=== PATIENT | male | born 1995 ===

== ENCOUNTER 2018-01-09 01:35 | Observation (INO) | payer OTHER ==
[2018-01-09] MEDS ORDERED: Morphine VIAL* 10 MG/ML 1 ML VIAL IV ONE (02:23)
[2018-01-09] MEDS ORDERED: Ondansetron INJ* 2 MG/ML VIAL IV ONE (02:23)
[2018-01-09] MEDS ORDERED: NS 0.9% 1000 ML* 1,000 ML IV ONE ×3 (02:23→08:39)
--- NOTE | 2018-01-09 02:27 | ED ---
Abdominal Pain/Male - HPI Summary HPI Summary: Please of sudden onset epigastric pain with multiple episodes of N/V starting at 10 PM last night. Patient states he had pizza for dinner. Patient has tried Tums but has vomited up. Active vomiting here in ED. Abdominal pain described as constant with spikes, improved after vomiting. Denies fever, cough , sore throat, CP, SOB, diarrhea, change in urine or BM. Medical history is none. Abdominal/pelvic surgical history is none. - History of Current Complaint Hx Obtained From: Patient Onset/Duration: Sudden Onset Timing: Constant Severity Initially: Moderate Severity Currently: Moderate Pain Intensity: 8 Pain Scale Used: 0-10 Numeric Location: Epigastric Radiates: No Character: Sharp Alleviating Factor(s): Vomiting Associated Signs And Symptoms: Positive: Nausea, Vomiting - Risk Factors Testicular Torsion: Negative Cardiac Risk Factors: Negative <Bradley Paul - Last Filed: 01/09/18 03:36> <Tee Jean-Baptiste - Last Filed: 01/09/18 07:00> - History of Current Complaint Chief Complaint: EDNauseaVomitDiarrh Stated Complaint: ABD PAIN Time Seen by Provider: 01/09/18 01:56 - Allergies/Home Medications Allergies/Adverse Reactions: Allergies Allergy/AdvReac Type Severity Reaction Status Date / Time No Known Allergies Allergy Verified 01/09/18 01:42 Home Medications: Home Medications NK [No Home Medications Reported] 01/09/18 [History Confirmed 01/09/18] PMH/Surg Hx/FS Hx/Imm Hx Infectious Disease History: No Infectious Disease History: Denies: Traveled Outside the [place] in Last 30 Days - Social History Alcohol Use: Weekly Substance Use Type: Reports: None Smoking Status (MU): Never Smoked Tobacco <Bradley Paul - Last Filed: 01/09/18 03:36> Review of Systems Constitutional: Negative Eyes: Negative ENT: Negative Cardiovascular: Negative Respiratory: Negative Positive: Abdominal Pain, Vomiting, Nausea Genitourinary: Negative Musculoskeletal: Negative Skin: Negative Neurological: Negative Psychological: Normal All Other Systems Reviewed And Are Negative: Yes <Bradley Paul - Last Filed: 01/09/18 03:36> Physical Exam Triage Information Reviewed: Yes Vital Signs On Initial Exam: Initial Vitals Temp Pulse Resp BP Pulse Ox 98.1 F 81 20 124/78 100 01/09/18 01:40 01/09/18 01:40 01/09/18 01:40 01/09/18 01:40 01/09/18 01:40 Vital Signs Reviewed: Yes Appearance: Positive: Well-Appearing Skin: Positive: Warm Head/Face: Positive: Normal Head/Face Inspection Eyes: Positive: Normal Neck: Positive: Supple Respiratory/Lung Sounds: Positive: Clear to Auscultation Cardiovascular: Positive: Normal Abdomen Description: Positive: Other: - Epigastric and left upper quadrant tenderness Musculoskeletal: Positive: Normal Neurological: Positive: Normal Psychiatric: Positive: Normal AVPU Assessment: Alert - Sourav Coma Scale Best Eye Response: 4 - Spontaneous Best Motor Response: 6 - Obeys Commands Best Verbal Response: 5 - Oriented Coma Scale Total: 15 <Bradley Paul - Last Filed: 01/09/18 03:36> Vital Signs On Initial Exam: Initial Vitals Temp Pulse Resp BP Pulse Ox 98.1 F 81 20 124/78 100 01/09/18 01:40 01/09/18 01:40 01/09/18 01:40 01/09/18 01:40 01/09/18 01:40 <Tee Jean-Baptiste - Last Filed: 01/09/18 07:00> Diagnostics - Vital Signs Vital Signs Temp Pulse Resp BP Pulse Ox 01/09/18 01:40 98.1 F 81 20 124/78 100 - Laboratory Result Diagrams: 01/09/18 02:25 01/09/18 02:25 Lab Statement: Any lab studies that have been ordered have been reviewed, and results considered in the medical decision making process. <Bradley Paul - Last Filed: 01/09/18 03:36> - Vital Signs Vital Signs Temp Pulse Resp BP Pulse Ox 01/09/18 06:43 74 143/80 96 01/09/18 06:01 107 98 01/09/18 05:59 70 136/73 98 01/09/18 05:29 69 134/76 97 01/09/18 05:01 77 97 01/09/18 04:59 71 135/73 97 01/09/18 04:29 79 133/78 98 01/09/18 04:01 75 99 01/09/18 03:59 73 126/83 99 01/09/18 03:29 82 135/79 97 01/09/18 03:01 74 95 01/09/18 02:59 78 137/78 93 01/09/18 02:58 74 97 01/09/18 02:49 18 01/09/18 01:40 98.1 F 81 20 124/78 100 - Laboratory Lab Results: Lab Results 01/09/18 01/09/18 01/09/18 Range/Units 02:25 02:25 02:25 WBC 10.9 H (3.5-10.8) 10^3/ul RBC 5.50 H (4.0-5.4) 10^6/ul Hgb 15.2 (14.0-18.0) g/dl Hct 46 (42-52) % MCV 83 (80-94) fL MCH 28 (27-31) pg MCHC 33 (31-36) g/dl RDW 14 (10.5-15) % Plt Count 222 (150-450) 10^3/ul MPV 8.1 (7.4-10.4) um3 Neut % (Auto) 82.2 (38-83) % Lymph % (Auto) 10.9 L (25-47) % [place] % (Auto) 6.1 (0-7) % Eos % (Auto) 0.4 (0-6) % Baso % (Auto) 0.4 (0-2) % Absolute Neuts (auto) 9.0 H (1.5-7.7) 10^3/ul Absolute Lymphs (auto) 1.2 (1.0-4.8) 10^3/ul Absolute Monos (auto) 0.7 (0-0.8) 10^3/ul Absolute Eos (auto) 0 (0-0.6) 10^3/ul Absolute Basos (auto) 0 (0-0.2) 10^3/ul Absolute Nucleated RBC 0 10^3/ul Nucleated RBC % 0.1 Sodium 141 (139-145) mmol/L Potassium 4.2 (3.5-5.0) mmol/L Chloride 108 (101-111) mmol/L Carbon Dioxide 25 (22-32) mmol/L Anion Gap 8 (2-11) mmol/L BUN 18 (6-24) mg/dL Creatinine 1.16 (0.67-1.17) mg/dL Est GFR ( Amer) 101.3 (>60) Est GFR (Non-Af Amer) 78.7 (>60) BUN/Creatinine Ratio 15.5 (8-20) Glucose 116 H (70-100) mg/dL Lactic Acid 0.9 (0.5-2.0) mmol/L Calcium 9.8 (8.6-10.3) mg/dL Total Bilirubin 1.20 H (0.2-1.0) mg/dL AST 17 (13-39) U/L ALT 17 (7-52) U/L Alkaline Phosphatase 75 (34-104) U/L Total Protein 7.3 (6.4-8.9) g/dL Albumin 4.5 (3.2-5.2) g/dL Globulin 2.8 (2-4) g/dL Albumin/Globulin Ratio 1.6 (1-3) Lipase 10 L (11.0-82.0) U/L Urine Color Urine Appearance Urine pH (5-9) Ur Specific [place] (1.010-1.030) Urine Protein (Negative) Urine Ketones (Negative) Urine Blood (Negative) Urine Nitrate (Negative) Urine Bilirubin (Negative) Urine Urobilinogen (Negative) Ur Leukocyte Esterase (Negative) Urine Glucose (Negative) 01/09/18 Range/Units 03:50 WBC (3.5-10.8) 10^3/ul RBC (4.0-5.4) 10^6/ul Hgb (14.0-18.0) g/dl Hct (42-52) % MCV (80-94) fL MCH (27-31) pg MCHC (31-36) g/dl RDW (10.5-15) % Plt Count (150-450) 10^3/ul MPV (7.4-10.4) um3 Neut % (Auto) (38-83) % Lymph % (Auto) (25-47) % [place] % (Auto) (0-7) % Eos % (Auto) (0-6) % Baso % (Auto) (0-2) % Absolute Neuts (auto) (1.5-7.7) 10^3/ul Absolute Lymphs (auto) (1.0-4.8) 10^3/ul Absolute Monos (auto) (0-0.8) 10^3/ul Absolute Eos (auto) (0-0.6) 10^3/ul Absolute Basos (auto) (0-0.2) 10^3/ul Absolute Nucleated RBC 10^3/ul Nucleated RBC % Sodium (139-145) mmol/L Potassium (3.5-5.0) mmol/L Chloride (101-111) mmol/L Carbon Dioxide (22-32) mmol/L Anion Gap (2-11) mmol/L BUN (6-24) mg/dL Creatinine (0.67-1.17) mg/dL Est GFR ( Amer) (>60) Est GFR (Non-Af Amer) (>60) BUN/Creatinine Ratio (8-20) Glucose (70-100) mg/dL Lactic Acid (0.5-2.0) mmol/L Calcium (8.6-10.3) mg/dL Total Bilirubin (0.2-1.0) mg/dL AST (13-39) U/L ALT (7-52) U/L Alkaline Phosphatase (34-104) U/L Total Protein (6.4-8.9) g/dL Albumin (3.2-5.2) g/dL Globulin (2-4) g/dL Albumin/Globulin Ratio (1-3) Lipase (11.0-82.0) U/L Urine Color Yellow Urine Appearance Clear Urine pH 5.0 (5-9) Ur Specific [place] 1.023 (1.010-1.030) Urine Protein Negative (Negative) Urine Ketones 1+ A (Negative) Urine Blood Negative (Negative) Urine Nitrate Negative (Negative) Urine Bilirubin Negative (Negative) Urine Urobilinogen Negative (Negative) Ur Leukocyte Esterase Negative (Negative) Urine Glucose Negative (Negative) Result Diagrams: 01/09/18 02:25 01/09/18 02:25 Lab Statement: Any lab studies that have been ordered have been reviewed, and results considered in the medical decision making process. <Tee Jean-Baptiste - Last Filed: 01/09/18 07:00> Re-Evaluation - Re-Evaluation 1 Re-Evaluation Time: 03:28 Change: Improved Comment: Patient pain and nausea control. Initial abdominal exam was inconclusive, as patient was reactive to pressure in any quadrant. After pain control patient most tender in right lower quadrant 2 Re-Evaluation Time: 03:36 Comment: Patient care endorsed to Dr. Jean-Baptiste at this time. <Bradley Paul - Last Filed: 01/09/18 03:36> Abdominal Pain Fem Course/Dx <Bradley Paul - Last Filed: 01/09/18 03:36> - Course Course Of Treatment: Pt pending CT -- I, Dr Jean-Baptiste assumed care. See my separate note. I performed a hx/PE on this patient. - Diagnoses Differential Diagnosis/HQI/PQRI: Appendicitis, Bowel Obstruction, Constipation, Diverticulitis, Pancreatitis, Peptic Ulcer Disease, Urinary Tract Infection <Tee Jean-Baptiste - Last Filed: 01/09/18 07:00> - Diagnoses Provider Diagnoses: Right lower quadrant abdominal pain Discharge <Bradley Paul - Last Filed: 01/09/18 03:36> - Sign-Out/Discharge Documenting (check all that apply): Sign-Out Patient Signing out patient TO: Steven Frias - signed out by Dr Jean-Baptiste at 7am - Discharge Plan Discharge Disposition Comment: Dr Frias - Billing Disposition and Condition Condition: STABLE <Tee Jean-Baptiste - Last Filed: 01/09/18 07:00> - Discharge Plan Condition: Stable Referrals: [facility] - Markell MCKINNON [Primary Care Provider] -
[2018-01-09] MEDS ORDERED: Morphine VIAL* 4 MG/ML VIAL (1 ml vial) IV ONE ×2 (02:43→02:49)
[2018-01-09 02:53] LABS: ABS Basophils 0 10^3/ul (0-0.2); ABS Eosinophils 0 10^3/ul (0-0.6); ABS Lymphocytes 1.2 10^3/ul (1.0-4.8); ABS Monocytes 0.7 10^3/ul (0-0.8); ABS Nucleated RBC 0 10^3/ul; Eosinophil % 0.4 % (0-6); Hematocrit 46 % (42-52); Hemoglobin 15.2 g/dl (14.0-18.0); Lymphocyte % 10.9 % (25-47); Mean Corpuscular HGB Conc 33 g/dl (31-36); Mean Corpuscular Hemoglobin 28 pg (27-31); Mean Corpuscular Volume 83 fL (80-94); Mean Platelet Volume 8.1 um3 (7.4-10.4); Nucleated Red Blood Cells % 0.1; Platelet Count 222 10^3/ul (150-450); Red Cell Distribution Width 14 % (10.5-15); White Blood Count 10.9 10^3/ul (3.5-10.8)
[2018-01-09 03:09] LABS: EGFR Non-African American 78.7 (>60)
[2018-01-09 04:04] LABS: Urine Appearance Clear; Urine Blood Negative (Negative); Urine Color Yellow; Urine Ketones 1+ (Negative); Urine Protein Negative (Negative); Urine Specific Gravity 1.023 (1.010-1.030); Urine Urobilinogen Negative (Negative)
[2018-01-09] MEDS ORDERED: Iohexol 300* (CONTRAST) 10 ML SDV IV ONE (06:21)
--- NOTE | 2018-01-09 07:47 | RAD ---
INDICATION: Right lower quadrant pain, nausea and vomiting. COMPARISON: There are no prior studies available for comparison. TECHNIQUE: A CT scan of the abdomen and pelvis was performed with intravenous and oral contrast following intravenous injection of 100 ml of Omnipaque 300 nonionic contrast. Contiguous axial sections were obtained from the lung bases through the symphysis pubis. Images were reconstructed in the coronal and sagittal planes. FINDINGS: The lung bases are clear. No pleural effusion is present. The liver and spleen are within normal limits in size without significant focal abnormality. No calcified gallstones are seen. The pancreas appears to be within normal limits in size. The kidneys and adrenal glands are normal in size. No hydronephrosis is seen. No significant focal renal abnormality is seen. The aorta is normal in caliber and demonstrates homogeneous contrast opacification. There is a retroaortic left renal vein present. No significant enlarged retroperitoneal lymph nodes are seen. The stomach, small and large bowel appear nondistended. The appendix is borderline enlarged measuring 7 mm in diameter. There is some fluid within the appendix. There is no contrast extension into the appendix. There is no surrounding interstitial inflammatory changes. No abscess is present. No free intraperitoneal air is seen. There is a small amount of free intraperitoneal fluid in the posterior pelvis which is abnormal. No significant focal osseous abnormality is seen. IMPRESSION: 1. BORDERLINE ENLARGED APPENDIX WITHOUT SURROUNDING INFLAMMATORY CHANGE ALTHOUGH MAY REPRESENT EARLY APPENDICITIS. RECOMMEND CLINICAL CORRELATION AND FOLLOW-UP. 2. SMALL AMOUNT OF FREE INTRAPERITONEAL FLUID.
[2018-01-09 08:59] LABS: ABS Basophils 0 10^3/ul (0-0.2); ABS Eosinophils 0 10^3/ul (0-0.6); ABS Lymphocytes 1.4 10^3/ul (1.0-4.8); ABS Monocytes 0.7 10^3/ul (0-0.8); ABS Neutrophils 7.9 10^3/ul (1.5-7.7); ABS Nucleated RBC 0 10^3/ul; Eosinophil % 0.1 % (0-6); Hematocrit 42 % (42-52); Hemoglobin 13.9 g/dl (14.0-18.0); Lymphocyte % 13.9 % (25-47); Mean Corpuscular HGB Conc 33 g/dl (31-36); Mean Corpuscular Hemoglobin 27 pg (27-31); Mean Corpuscular Volume 83 fL (80-94); Mean Platelet Volume 7.9 um3 (7.4-10.4); Nucleated Red Blood Cells % 0; Platelet Count 218 10^3/ul (150-450); Red Blood Count 5.06 10^6/ul (4.0-5.4); Red Cell Distribution Width 14 % (10.5-15)
[2018-01-09 09:18] LABS: EGFR Non-African American 85.5 (>60)
--- NOTE | 2018-01-09 10:33 | HP ---
CC: [facility]; [facility]* HISTORY AND PHYSICAL: DATE OF ADMISSION: 01/09/18 REFERRING PROVIDER: Dr. Steven Frias, emergency room. CHIEF COMPLAINT: Right lower quadrant abdominal pain with nausea and vomiting. HISTORY OF PRESENT ILLNESS: Mr. 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 He was anorexic and he had no diarrhea or urinary complaints. Subsequent to this over the next 6 to 8 hours, he developed some right lower quadrant abdominal pain and he presented to the emergency room early this morning. He was noted to be afebrile and noted to have tenderness in the right lower quadrant on physical examination. He had mild elevation of his white blood cell count to 11,000. He underwent a CAT scan of the abdomen and pelvis. I did review these images. This shows a distended, mildly thick walled appendix and periappendiceal inflammation with no evidence of extraluminal air, fluid or abscess to suggest perforation. The study was otherwise unremarkable. Surgical consultation has been obtained. PAST MEDICAL HISTORY: Unremarkable. 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 MEDICATIONS: None. ALLERGIES: He has no known drug allergies. SOCIAL HISTORY: He does not smoke. He drinks alcohol on a rare social basis. He is a [employer] senior, he will be graduating and will pursue a PhD degree starting next year. REVIEW OF SYSTEMS: Cerebrovascular: No dizziness or visual disturbances. Cardiovascular: No chest pain, shortness of breath. Pulmonary: No wheezing or hemoptysis. GI: As per above. He has no chronic abdominal discomfort. He has had no weight loss. He has never had pain like this before. : No urgency or hematuria. PHYSICAL EXAMINATION GENERAL: A well-developed, well-nourished male who appears to be in no apparent distress. He is quite alert and conversive. VITAL SIGNS: He is afebrile. Heart rates in the 70s. LUNGS: Clear to auscultation with normal respiratory effort. HEART: Regular rate and rhythm without murmurs, rubs or gallops. ABDOMEN: Soft, nondistended. He had diminished bowel sounds throughout. There are no prior surgical incisions. There is no hernia. He has tenderness with some voluntary guarding in the right lower quadrant with some rigidity. There is no tenderness in the suprapubic area or left lower quadrant. PSYCHIATRIC: He is awake, alert and oriented x3. He has normal judgment and insight. IMPRESSION: Acute appendicitis. PLAN/RECOMMENDATIONS: I discussed the findings of the history and physical exam and the CT scan, discussed the pathophysiology of acute appendicitis and treatment here in the [place], and I recommend that he proceed with a laparoscopic appendectomy today when the operating room schedule permits. His mother is an anesthesiologist in [place] and I did talk with her as well on the telephone. We discussed nonoperative management of acute appendicitis including IV antibiotic treatment and I do not recommend this course and she also agrees that we should proceed with surgery, especially considering the fact that he most likely will be able to go home later today or early tomorrow morning with minimal risk from surgery for such an early presentation of acute appendicitis without apparent complication. I discussed the procedure with them in detail, and the risks of, but not limited to bleeding, infection, intraabdominal abscess formation, injury to peritoneal and retroperitoneal structures, abscess formation, possibility of an open procedure, postoperative deep vein thrombosis, the risk of general anesthesia and recovery time were also discussed. Plan: The patient will be kept n.p.o. and continued IV fluids. He will receive a dose of antibiotics preoperatively and we will proceed later today as the operating room schedule permits. [id number]/[facility] #: [id number] [place]
[2018-01-09] MEDS ORDERED: NS 0.9% 100 ML* 100 ML with ceFOXitin(*) 2 GM IVPB ONE ×2 (13:00)
[2018-01-09] MEDS ORDERED: Bupivacaine 0.25% SDV* 30 ML ONE (14:13)
[2018-01-09] MEDS ORDERED: Naloxone* 0.4 MG/ML 1 ML VIAL IV PRN (14:33)
[2018-01-09] MEDS ORDERED: Ondansetron INJ* 2 MG/ML VIAL IV PRN ×2 (14:33→18:47)
[2018-01-09] MEDS ORDERED: fentaNYL* 50 MCG/ML 2 ML VIAL (100 MCG VIAL) IV PRN (14:33)
[2018-01-09] MEDS ORDERED: fentaNYL* 50 MCG/ML 2 ML VIAL (100 MCG VIAL) ONE (14:42)
[2018-01-09] MEDS ORDERED: Propofol* 10 MG/ML 20 ML BTL IV PUSH ONE ×2 (14:46→15:45)
[2018-01-09] MEDS ORDERED: Rocuronium* 10 MG/ML VIAL ONE (14:46)
[2018-01-09] MEDS ORDERED: Lidocaine 2% PF * 5 ML VIAL ONE (14:46)
--- NOTE | 2018-01-09 15:39 | ED ---
I, Sheldon Ruiz, scribed for Steven Frias MD on 01/09/18 at 0730 . Progress - Progress Note Progress Note: The patient is a sign out from Dr. Jean-Baptiste to Dr. Frias at shift change, awaiting further workup and disposition. The CT scan was inconclusive with regards to appendicitis, so I asked Dr. Livingston, surgery, to come to assess the patient. He came to the ED at 09:20. He has a high suspicion for appendicitis, so he will admit the patient for surgery. Course/Dx - Diagnoses Provider Diagnoses: Acute appendicitis Discharge - Sign-Out/Discharge Documenting (check all that apply): Discharge/Admit/Transfer - Patient is admitted by Dr. Livingston, Receiving Sign-Out Receiving patient FROM: Tee Jean-Baptiste - Discharge Plan Condition: Stable Disposition: ADMITTED TO [facility] - Billing Disposition and Condition Condition: STABLE Disposition: [facility] [place] The documentation as recorded by the scribeJoseph Thomas accurately reflects the service I personally performed and the decisions made by me, Steven Frias MD.
[2018-01-09] MEDS ORDERED: Glycopyrrolate IV* 0.2 MG/ML 1 ML VIAL ONE (15:45)
[2018-01-09] MEDS ORDERED: Ketorolac INJ* 30 MG/ML 1 ML VIAL ONE (15:45)
[2018-01-09] MEDS ORDERED: Neostigmine Methylsulfate* 1 MG/ML 10 ML VIAL (1 mg/ml) ONE (15:45)
--- NOTE | 2018-01-09 16:08 | BRIEFOPN ---
Brief Operative Note - Surgery Procedures: OPERATIVE REPORT PRE-OP: Acute appendicitis POST-OP: Acute suppurative appendicitis PROCEDURE: Laparoscopic appendectomy SURGEON: MD Miki ANESTHESIA: General with Dr. Juarez ASST: MELISSA Olivo IVF: 1 liter of crystalloid EBL: min SPECIMEN:appendix DRAIN: none WOUND CLASS: clean contaminated COMPLICATIONS: none TO PACU
[2018-01-09] MEDS ORDERED: Ketorolac INJ* 30 MG/ML 1 ML VIAL IV PUSH PRN (18:47)
[2018-01-09] MEDS ORDERED: Acetaminophen TAB* 325 MG PO PRN (18:47)
[2018-01-09] MEDS ORDERED: Morphine VIAL* 4 MG/ML VIAL (1 ml vial) IV PRN (18:49)
[2018-01-09] MEDS ORDERED: oxyCODONE/Acetamin 5/325 MG* TAB ONE (19:36)
[2018-01-09] MEDS: oxyCODONE/Acetamin 5/325 MG* TAB PO PRN (19:39)
[2018-01-09] MEDS: Heparin VIAL(*) 5000 UNITS/ML VIAL (FIVE THOUSAND) SUBCUT SCH (21:26)
--- NOTE | 2018-01-09 23:55 | OP ---
CC: [facility]; [facility]* OPERATIVE REPORT: DATE OF OPERATION: 01/09/18 - Inpatient, room SSU 343-02 DATE OF : 89 SURGEON: Kunal Livingston MD TOOL PUSHER: SELENA Piña Student ANESTHESIOLOGIST: Dr. Chong. ANESTHESIA: General with local. PRE-OP DIAGNOSIS: Acute appendicitis. POST-OP DIAGNOSIS: Acute suppurative appendicitis. OPERATIVE PROCEDURE: Laparoscopic appendectomy. ESTIMATED BLOOD LOSS: Minimal. WOUND CLASSIFICATION: Clean contaminated. DRAINS: None. SPECIMENS: Appendix. COMPLICATIONS: None. FINDINGS: Acute suppurative appendicitis without evidence of perforation, gangrene or abscess formation. BRIEF HISTORY: Mr. Naga Pierce is a 22-year-old [employer] senior, who presented to the emergency room with 16 hours of abdominal pain, nausea, and vomiting, and subsequent development of right lower quadrant abdominal pain. A CT scan showed acute appendicitis. He is now to be taken to the operating room for an appendectomy. The procedure including the risks, benefits, and alternatives were discussed with the patient and he gives us consent to proceed. DESCRIPTION OF PROCEDURE: Written informed consent was obtained, the abdomen was marked with indelible ink and preoperative antibiotics were administered. The patient was taken to the operating room and placed in the supine position. Sequential compression devices and a warming blanket were applied. General anesthesia was administered. The abdomen was prepped and draped in the usual sterile fashion. Time-out verification was completed. A 0.25% Marcaine mixed with 1% lidocaine was infiltrated around the periumbilical area and a vertical incision was made at the lower portion of the umbilicus, and the peritoneal cavity was entered under direct vision. A 12-mm blunt port was inserted. The abdomen was insufflated to 15 mmHg. Under direct vision, a 5-mm port was placed in the left lower abdominal wall and I placed a second 5-mm port in the right upper abdominal wall due to the fact that the bladder was quite distended and I did not feel that I would be able to place a suprapubic port low enough for adequate visualization and dissection. The appendix was identified. The distal half was suppuratively inflamed and edematous without evidence of perforation. The proximal appendix, cecum and terminal ileum were all normal. There was some turbid yellow fluid in the right lower quadrant as well as the pelvis, but no pus, abscess or evidence of perforation. The appendix was then grasped and elevated. The mesoappendix was taken sequentially with a LigaSure device from distal to proximal. The base of the appendix was normal as was the cecum and an EndoGIA luciano load of a 45-mm stapler was used to divide the appendix at its base and this was placed in an EndoCatch bag and brought out through the umbilical incision. The staple line was intact without evidence of bleeding. I irrigated the right lower lower quadrant and pelvis to the point that it was clear. All ports removed under direct vision of the camera and there was no abdominal wall bleeding. The umbilical fascia was closed with interrupted 0 Polysorb suture. The skin was approximated with subcuticular 4-0 Polysorb suture. Steri -Strips and sterile dressings were applied. The patient tolerated the procedure well, and was taken to the recovery room in stable condition. [id number]/[facility] #: [id number] MTDD
--- NOTE | 2018-01-10 03:17 | ED ---
Elie Peterson Nikita, scribed for Tee Jean-Baptiste MD on 01/09/18 at 0652 . Progress - Progress Note Progress Note: This patient was signed out from SELENA Paul, pending disposition, awaiting CT abd/ pel. CT abd/pel reveals borderline suspicion for appendicitis without abscess or free air. A followup CT in several hours may be obtained as clinicall indicated to reevaluate for an evolving inflammatory process. HPI: abdominal pain in the UQ, migrated to RLQ PE: mild to moderate tenderness in RLQ and planned CT scan to rule out appendicitis CT scan shows equivocal appendix and non-filled appendix (with contrast). Will require reeval and or re-scan in 2hrs for better filling of appendix with contrast. This patient is signed out to Dr. Frias, awaiting reevaluation. Re-Evaluation - Re-Evaluation 1 Re-Evaluation Time: 03:28 Change: Improved Comment: Patient pain and nausea control. Initial abdominal exam was inconclusive, as patient was reactive to pressure in any quadrant. After pain control patient most tender in right lower quadrant 2 Re-Evaluation Time: 03:36 Comment: Patient care endorsed to Dr. Jean-Baptiste at this time. Course/Dx - Diagnoses Provider Diagnoses: Acute appendicitis Discharge - Sign-Out/Discharge Documenting (check all that apply): Sign-Out Patient, Receiving Sign-Out Signing out patient TO: Steven Frias Receiving patient FROM: Bradley Paul - Discharge Plan Condition: Stable Disposition: ADMITTED TO [facility] The documentation as recorded by the Elie moore Nikita accurately reflects the service I personally performed and the decisions made by , Tee Jean-Baptiste MD.
[2018-01-10] MEDS: Heparin VIAL(*) 5000 UNITS/ML VIAL (FIVE THOUSAND) SUBCUT SCH ×2 (05:38→18:31)
[2018-01-10] MEDS: oxyCODONE/Acetamin 5/325 MG* TAB PO PRN (06:33)
[2018-01-10 07:27] VITALS: BP 132/71
--- NOTE | 2018-01-10 08:16 | PN ---
Progress Note - Progress Note Date of Service: 01/10/18 SOAP: Subjective: Feels much better this morning Tolerating liquids, no N/V Ambulating to bathroom No SOB and no further coughing-remains on one liter O2 NC Objective: Temp Pulse Resp BP Pulse Ox 100.5 F 92 14 132/71 92 01/10/18 07:26 01/10/18 07:26 01/10/18 07:26 01/10/18 07:26 01/10/18 07:26 Intake & Output 01/08/18 01/09/18 01/10/18 01/11/18 06:59 06:59 06:59 06:59 Intake Total 1000 3850 Output Total 0 Balance 1000 3850 Weight 170 lb 170 lb Intake: IV Fluids 1000 2950 LR 900 NS 50ML, Cefoxitin 2G 50 Oral 900 Output: Urine 0 Other: Estimated Void Medium # Bowel Movements 0 # Voids 1 PEX: Comfortable Awake and alert Lungs are clear-no rhonchi, wheezing or rales ABd is soft and non-distended. Incisions are clean and dry. Bowel sounds are present. Ext without edema Assessment: POD# 1 s/p lap appy for acute appendicitis Post-op laryngospasm after intubation-appears resolved. Nursing notes reviewed- oxygen being weaned off. Plan: Increase activity and wean oxygen off- Pulmonary toilet Advance diet If doing well-plan d/c later today.
--- NOTE | 2018-01-10 09:43 | PN ---
Progress Note - Progress Note Date of Service: 01/10/18 Note: Subjective: Mr. Pierce is POD#1 from a laparoscopic appendectomy. He reports that he is feeling well this morning with minimal pain at this time. He was feeling the pain quite a bit earlier this morning, and received percocet which was successful in relieving the pain. He stated that he tolerated clear liquids last evening without N/V; has not eaten yet this morning. He had a few liquid stools last evening, and another this morning. Has been urinating adequately. He feels that his SOB has largely resolved; still on 1L of oxygen. He denies fevers, chills, CP, palpitations, SOB, coughing, wheezing, abdominal pain, N/V. Current Medications Acetaminophen (Tylenol Tab*) 650 mg PO Q6H PRN PRN Reason: FEVER Heparin Sodium (Porcine) (Heparin Vial(*)) 5,000 units SUBCUT Q8HR HILARIA Last Admin: 01/10/18 05:38 Dose: 5,000 units Ketorolac Tromethamine (Toradol Inj*) 30 mg IV PUSH Q6H PRN PRN Reason: PAIN Morphine Sulfate (Morphine Vial*) 2 mg IV Q4H PRN PRN Reason: PAIN - MILD Ondansetron HCl (Zofran Inj*) 4 mg IV Q6H PRN PRN Reason: NAUSEA Oxycodone/Acetaminophen (Percocet 5/325 Tab*) 1 tab PO Q4H PRN PRN Reason: PAIN Last Admin: 01/10/18 06:33 Dose: 1 tab Objective: Vital Signs - 8 hr 01/10/18 01/10/18 01/10/18 02:18 02:59 03:57 Temperature 98.6 F 99.3 F Pulse Rate 78 77 Respiratory 16 16 Rate Blood Pressure 109/66 116/64 (mmHg) O2 Sat by Pulse 99 97 97 Oximetry 01/10/18 01/10/18 01/10/18 05:43 06:33 07:26 Temperature 100.5 F Pulse Rate 90 92 Respiratory 16 14 Rate Blood Pressure 132/71 (mmHg) O2 Sat by Pulse 94 92 Oximetry General: Pleasant and sleepy lying in bed in NAD. CV: RRR w/o MRG. Resp: CTAB w/o RRW. GI: Abdomen is soft, non-distended and non-tender to palpation. BS present throughout. Incision sites appear clean, dry, with steri-strips intact; no evidence of infection. Extremities: w/o edema Assessment & Plan: POD#1 appendectomy. Doing well; will likely d/c this afternoon. Continue to wean off oxygen and advance diet.
--- NOTE | 2018-01-10 13:01 | PN ---
Progress Note - Progress Note Date of Service: 01/10/18 SOAP: Subjective: Doing well out of bed and ambulating in the halls No SOB or chest pain--off oxygen. O2 saturations 95% on RA Tolerated breakfast PEX: Comfortable Lungs are clear without rales, wheezing, stridor or wheezing. Heart is regular Plan: S/P lap appy with post-intubation laryngospasm--appears to have resolved and doing well Anesthesia to see Plan d/c later today. Post-op instructions given and office follow up arranged.
== END 2018-01-10 15:15 | disposition home or self-care (01) ==
LOC: ED 01:35 → OR 10:27 → SSU 20:33 → INTOOBSV 20:33
PROVIDERS: ADMIT Surgery; ATTEND Surgery
PROC: 0DTJ4ZZ Resection of Appendix, Percutaneous Endoscopic Approach (ICD-10-PCS; principal; 2018-01-09 15:15)
DX: K35.80 Unspecified acute appendicitis (principal)
CPT/HCPCS: 36415; 74177; 80053; 81003; 83605; 83690; 85025; 86140; 88304; 96374; 96375; 96376; 99284; A9270-GY; C1776; G0378; J0694; J1644; J1885; J2270; J2405; J2704; J2710; J3010; Q9967